=== PATIENT | female | born 1965 | race Caucasian/White ===

== ENCOUNTER 2016-07-12 16:56 | Emergency (ER) | payer OTHER ==
[~2016-07-12] VITALS: Ht 170.2 cm; Wt 83.6 kg
[~2016-07-12 16:56] MED LIST: AZULFIDINE500 MG/TAB PO; PRILOTC PO; [UNRECOGNIZED DRUG - REMARK]
[2016-07-12 16:59] VITALS: TEMP 97.6
[2016-07-12 17:55] LABS: BASO % 0.6 % (0.0-2.0); EOS # 0.1 (0.0-0.7); EOS % 1.5 % (0-4.0); GRAN % 72.2 % (42.2-75.2); HEMATOCRIT 32.6 % (37.0-47.0); HEMOGLOBIN 10.5 g/dl (12.5-16.0); LYMPH # 1.3 (1.2-3.4); LYMPH % 19.4 % (20.0-51.0); MEAN CELL VOLUME 96 fl (80.0-100.0); MEAN CORPUSCULAR HEMOGLOBIN 31 pg (27.0-31.0); MEAN CORPUSCULAR HGB CONC 32 g/dl (33.0-37.0); MEAN PLATELET VOLUME 9.1 fl (7.4-10.4); MONO # 0.4 (0.1-0.6); MONO % 5.7 % (1.7-9.3); PLATELET COUNT 326 K/mm3 (130-400); RED BLOOD COUNT 3.41 M/mm3 (4.10-5.30); WHITE BLOOD COUNT 6.9 K/mm3 (4.8-10.8)
[2016-07-12 18:03] LABS: ADJUSTED CALCIUM 9.8 mg/dL (8.4-10.2); ALBUMIN 3.7 gm/dL (3.5-5.0); BILIRUBIN,TOTAL 0.9 mg/dL (0.0-1.0); CALCIUM 9.6 mg/dL (8.4-10.2); CREATININE, serum 0.78 mg/dL (0.52-1.25); POTASSIUM 3.6 mmol/L (3.4-5.0); TOTAL PROTEIN 6.6 gm/dL (6.4-8.2)
[2016-07-12] MEDS ORDERED: ZOFRAN ODT4 MG PO (18:26)
[2016-07-12] MEDS ORDERED: PREDNISONE20 MG PO (18:26)
[2016-07-12] MEDS ORDERED: NORCO2.5 PO (18:26)
[2016-07-12 19:05] VITALS: BP 102/54; PULSE 73
== END 2016-07-12 19:07 | disposition home or self-care (01) ==
LOC: COL.ER 16:56
PROVIDERS: Emergency Medicine
DX: R11.10 Vomiting, unspecified (principal); R19.7 Diarrhea, unspecified
CPT/HCPCS: J2405; J2550; J2930; J7030

== ENCOUNTER 2016-11-27 14:21 | Inpatient (IN) | payer OTHER ==
[~2016-11-27] VITALS: Ht 170.2 cm; Wt 83.6 kg
[~2016-11-27 14:21] MED LIST changes: +NORCO2.5 PO; +PREDNISONE20 MG PO; +ZOFRAN ODT4 MG PO
[2016-12-20] VITALS (12 sets, daily range): BP systolic 101–122; BP diastolic 55–75; PULSE 71–92; TEMP 97.8–98.8
[2016-12-20] MEDS ORDERED: HUMIRA40 MG/0.8 SQ (06:20)
[2016-12-21 02:09] VITALS: BP 103/61; PULSE 92; TEMP 98.4
[2016-12-21 06:00] VITALS: BP 109/61; PULSE 101; TEMP 100.3
[2016-12-21 08:11] LABS: HEMATOCRIT 35.3 % (37.0-47.0); HEMOGLOBIN 11.6 g/dl (12.5-16.0)
[2016-12-21 08:13] LABS: CALCIUM 8.5 mg/dL (8.4-10.2); CREATININE, serum 0.74 mg/dL (0.52-1.25); POTASSIUM 3.7 mmol/L (3.4-5.0)
[2016-12-21 14:00] VITALS: BP 112/64; PULSE 104; TEMP 97.8
[2016-12-21 17:46] VITALS: BP 115/64; PULSE 106; TEMP 99.5
[2016-12-21 21:21] VITALS: BP 104/63; PULSE 108; TEMP 99.3
[2016-12-22 02:03] VITALS: BP 103/58; BP 1036/58; PULSE 100; PULSE 200; TEMP 98.1
[2016-12-22 05:05] VITALS: BP 109/69; PULSE 103; TEMP 97.7
[2016-12-22 07:55] LABS: BASO # 0.1 (0.0-0.2); BASO % 0.4 % (0.0-2.0); EOS # 0.2 (0.0-0.7); EOS % 1.1 % (0-4.0); GRAN # 13.6 (1.4-6.5); GRAN % 88.1 % (42.2-75.2); LYMPH # 0.9 (1.2-3.4); LYMPH % 5.9 % (20.0-51.0); MEAN CELL VOLUME 102 fl (80.0-100.0); MEAN CORPUSCULAR HGB CONC 32 g/dl (33.0-37.0); MEAN PLATELET VOLUME 9.8 fl (7.4-10.4); MONO # 0.6 (0.1-0.6); MONO % 3.8 % (1.7-9.3); PLATELET COUNT 262 K/mm3 (130-400); RED BLOOD COUNT 3.36 M/mm3 (4.10-5.30); REDCELL DISTRIBUTION WIDTH-CV 13.9 % (11.5-14.5); WHITE BLOOD COUNT 15.4 K/mm3 (4.8-10.8)
[2016-12-22 08:00] LABS: HEMATOCRIT 34.4 % (37.0-47.0); HEMOGLOBIN 11.1 g/dl (12.5-16.0); MEAN CORPUSCULAR HEMOGLOBIN 33 pg (27.0-31.0)
[2016-12-22 08:12] LABS: ALBUMIN 3.3 gm/dL (3.5-5.0); CALCIUM 8.9 mg/dL (8.4-10.2); CREATININE, serum 0.72 mg/dL (0.52-1.25); PHOSPHOROUS 2.9 mg/dL (2.5-4.5); POTASSIUM 3.2 mmol/L (3.4-5.0)
[2016-12-22 10:23] VITALS: BP 99/59; PULSE 93; TEMP 98
[2016-12-22 14:14] VITALS: BP 107/62; PULSE 100; TEMP 97.6
[2016-12-22 17:28] VITALS: BP 112/57; PULSE 105; TEMP 99.3
[2016-12-22 22:00] VITALS: BP 108/52; PULSE 99; TEMP 99.5
[2016-12-23 02:00] VITALS: TEMP 98.8
[2016-12-23 05:48] VITALS: BP 123/67; PULSE 97; TEMP 98
[2016-12-23 07:47] LABS: BASO % 0.3 % (0.0-2.0); EOS # 0.1 (0.0-0.7); EOS % 0.9 % (0-4.0); GRAN # 12.1 (1.4-6.5); GRAN % 89.7 % (42.2-75.2); LYMPH # 0.7 (1.2-3.4); LYMPH % 4.9 % (20.0-51.0); MEAN CELL VOLUME 101 fl (80.0-100.0); MEAN CORPUSCULAR HGB CONC 33 g/dl (33.0-37.0); MEAN PLATELET VOLUME 9.7 fl (7.4-10.4); MONO # 0.4 (0.1-0.6); MONO % 3.1 % (1.7-9.3); PLATELET COUNT 289 K/mm3 (130-400); RED BLOOD COUNT 3.18 M/mm3 (4.10-5.30); REDCELL DISTRIBUTION WIDTH-CV 13.4 % (11.5-14.5); WHITE BLOOD COUNT 13.5 K/mm3 (4.8-10.8)
[2016-12-23 07:50] LABS: HEMOGLOBIN 10.5 g/dl (12.5-16.0); MEAN CORPUSCULAR HEMOGLOBIN 33 pg (27.0-31.0)
[2016-12-23 08:11] LABS: ALBUMIN 3.4 gm/dL (3.5-5.0); CALCIUM 9.1 mg/dL (8.4-10.2); CREATININE, serum 0.7 mg/dL (0.52-1.25); POTASSIUM 3.5 mmol/L (3.4-5.0)
[2016-12-23 09:25] VITALS: BP 116/72; PULSE 92; TEMP 98
[2016-12-23 13:59] VITALS: BP 114/65; PULSE 90; TEMP 98.9
[2016-12-23 17:23] VITALS: BP 118/68; PULSE 97; TEMP 98
[2016-12-23 21:56] VITALS: BP 118/61; PULSE 93; TEMP 97.3
[2016-12-24 05:50] VITALS: BP 121/69; PULSE 86; TEMP 96.8
[2016-12-24 09:22] VITALS: BP 107/65; PULSE 87; TEMP 98.5
[2016-12-24 13:31] VITALS: BP 104/60; PULSE 92; TEMP 98.6
[2016-12-24 17:18] VITALS: BP 106/60; PULSE 80; TEMP 98.1
[2016-12-24 22:09] VITALS: BP 118/61; PULSE 80; TEMP 97.4
[2016-12-25 02:18] VITALS: BP 103/54; PULSE 84; TEMP 98.5
[2016-12-25 05:02] VITALS: BP 104/53; PULSE 65; TEMP 98.2
[2016-12-25 09:23] LABS: BASO % 0.4 % (0.0-2.0); EOS # 0.1 (0.0-0.7); EOS % 1.9 % (0-4.0); GRAN # 5.3 (1.4-6.5); GRAN % 78.3 % (42.2-75.2); LYMPH # 0.8 (1.2-3.4); LYMPH % 11.7 % (20.0-51.0); MEAN CELL VOLUME 99 fl (80.0-100.0); MEAN CORPUSCULAR HGB CONC 33 g/dl (33.0-37.0); MONO # 0.5 (0.1-0.6); MONO % 7.3 % (1.7-9.3); PLATELET COUNT 297 K/mm3 (130-400); RED BLOOD COUNT 2.98 M/mm3 (4.10-5.30); REDCELL DISTRIBUTION WIDTH-CV 13.9 % (11.5-14.5); WHITE BLOOD COUNT 6.8 K/mm3 (4.8-10.8)
[2016-12-25 09:27] LABS: HEMATOCRIT 29.5 % (37.0-47.0); HEMOGLOBIN 9.7 g/dl (12.5-16.0); MEAN CORPUSCULAR HEMOGLOBIN 33 pg (27.0-31.0)
[2016-12-25 09:32] LABS: CALCIUM 8.9 mg/dL (8.4-10.2); CREATININE, serum 0.58 mg/dL (0.52-1.25); POTASSIUM 3.5 mmol/L (3.4-5.0)
[2016-12-25 10:28] VITALS: BP 112/65; PULSE 93; TEMP 98.7
[2016-12-25 13:50] VITALS: BP 108/65; PULSE 88; TEMP 98.2
[2016-12-25] MEDS ORDERED: NORCO 325 MG-51 TAB PO (14:42)
== END 2016-12-25 16:43 | disposition home or self-care (01) | DRG 330 ==
LOC: INPTSU 12-20 05:57 → SURG 12-20 05:57
PROVIDERS: Surgery
PROC: 0DTF0ZZ Resection of Right Large Intestine, Open Approach (ICD-10-PCS; 2016-12-20)
PROC: 0DTB0ZZ Resection of Ileum, Open Approach (ICD-10-PCS; principal; 2016-12-20 08:00)
DX: K50.012 Crohn's disease of small intestine with intestinal obstruction (principal); E87.6 Hypokalemia
CPT/HCPCS: OP; A4315; A9284; J0694; J1100; J1650; J1885; J2270; J2405; J2704; J2710; J3010; J7030; J7120

== ENCOUNTER → 2018-04-09 | Outpatient (CLI) | payer OTHER ==
[~2018-04-09] MED LIST changes: +HUMIRA40 MG/0.8 SQ; +NORCO 325 MG-51 TAB PO
== END ==
LOC: MC.RAD 16:46
DX: Z12.31 Encounter for screening mammogram for malignant neoplasm of breast (principal)

== ENCOUNTER → 2020-09-26 | Outpatient (CLI) | payer OTHER | LOC: MC.RAD 13:30 | DX: Z12.31 Encounter for screening mammogram for malignant neoplasm of breast (principal) ==

== ENCOUNTER → 2023-12-12 | Outpatient (CLI) | payer OTHER ==
[~2023-12-12] MED LIST changes: +ANTIVERT 25MG25 MG PO; +FLOXIN OTIC DROP5 ML OT; +VALIUM 5MG T5 MG/TAB PO
== END ==
LOC: MC.RAD 14:00
DX: Z12.31 Encounter for screening mammogram for malignant neoplasm of breast (principal)